=== PATIENT | female | born 1950 | race Caucasian/White ===

== ENCOUNTER → 2021-09-05 | Outpatient (CLI) | payer OTHER, MEDICARE ==
[~2021-09-05] MED LIST: BETAMETHASONE D15 G3 TOP; BIOTIN5000 MCG PO; BUPROPION XL300 MG PO; EFFEXOR XR150 MG PO; FISH OIL 1,0001 EAC9 PO; LEVO-T100 MCG PO; LIPITOR10 MG PO; LO-DOSE ASPIRIN81 M1 PO; MIRALAX119 GM PO; MYRBETRIQ50 MG PO; ONE-DAILY MULT1 EAC1 PO; STOOL SOFTENER1 EAC2 PO; TACROLIMUS30 G1 TOP
== END ==
LOC: LAB 10:16
PROVIDERS: ATTEND Student in an Organized Health Care Education/Training Program
DX: Z01.812 Encounter for preprocedural laboratory examination (principal); Z20.822 Contact with and (suspected) exposure to COVID-19

== ENCOUNTER → 2021-09-27 | Outpatient (CLI) | payer OTHER | LOC: LAB 10:27 | PROVIDERS: ATTEND Student in an Organized Health Care Education/Training Program | DX: Z01.812 Encounter for preprocedural laboratory examination (principal); Z20.822 Contact with and (suspected) exposure to COVID-19 ==